=== PATIENT | male | born 1945 | race Caucasian/White ===

== ENCOUNTER 2017-08-03 09:41 | Emergency (ER) | payer OTHER ==
[~2017-08-03] VITALS: Ht 170.2 cm; Wt 97.0 kg
[2017-08-03 09:43] VITALS: Ht 170.2 cm; Wt 97.0 kg
[2017-08-03] MEDS ORDERED: PARO40TA48 PO (10:29)
--- NOTE | 2017-08-03 10:37 | ERD ---
ER Documentation Chief Complaint Chief Complaint need refill for ativan 2 mg HPI 71-year-old male presents requesting a refill for Ativan. Gives a history of anxiety and depression. He last took Ativan in March 2017. He has seen a psychiatrist at [facility] in the past and has received prescriptions but his primary doctor stopped refilling his Ativan approximately 3 months ago. He is seeking other doctors who will prescribe it for him. Denies any homicidal or suicidal ideations. He is sometimes goes to [facility] to get his medications. ROS All systems reviewed and are negative except as per history of present illness. Medications Home Meds Active Scripts Paroxetine Hcl* (Paxil*) 40 Mg Tablet, 40 MG PO DAILY, #30 TAB Prov:CAMDEN WRIGHT MD 08/03/17 Physical Exam Vitals Vital Signs Date Time Temp Pulse Resp B/P Pulse Ox O2 Delivery O2 Flow Rate FiO2 08/03/17 09:43 98.0 63 18 119/65 96 Physical Exam Const: [], Pleasant, [id number]. Head: Atraumatic Eyes: Normal Conjunctiva ENT: Normal External Ears, Nose and Mouth. Neck: Full range of motion..~ No meningismus. Resp: Clear to auscultation bilaterally Cardio: Regular rate and rhythm, no murmurs Abd: Soft, non tender, non distended. Normal bowel sounds Skin: No petechiae or rashes Back: No midline or flank tenderness Ext: No cyanosis, or edema Neur: Awake and alert Psych: Normal Mood and Affect. Denies homicidal or suicidal ideations. Procedures/MDM She presents with a med refill request for Ativan. He takes Paxil as well. I counseled that he will be given a refill for Paxil both given the risk long- term benzos we will refer him back to psychiatry and primary doctor for evaluation for need for benzodiazepines. He is currently no apparent risk procedure given that he is not taking it a few months. Patient will discharged home with primary care follow-up and psychiatric follow-up. Patient shows no signs or symptoms to suggest grave disability, homicidal or suicidal ideations or danger to self or others. The patient was stable with no new complaints during the ER course. Clinically, there is no current evidence to suggest meningitis, sepsis, acute abdomen, pneumonia, acute coronary syndrome, pulmonary embolism, or any other emergent condition appearing to require further evaluation or hospitalization. The patient should certainly return for any new or worsening symptoms per the aftercare instructions. They should otherwise follow-up with her primary care doctor for reevaluation this week. Departure Diagnosis: Primary Impression: Anxiety Additional Impression: Encounter for medication refill Condition: Stable Patient Instructions: Taking Medicine Safely, Anxiety Reaction Additional Instructions: Va al pizano doctor/ specialista de psychiatrico para mas evaluacon en el proximo semana. posiblemente necesita autorizado de pizano doctor primario para specialista. Regresa para fiebre, o mas o nueva simptomas. CAMDEN WRIGHT MD Aug 03, 2017 10:37
== END 2017-08-03 10:40 | disposition home or self-care (01) ==
LOC: FTE 09:41
DX: F41.9 Anxiety disorder, unspecified (principal)
CPT/HCPCS: 99281